=== PATIENT | female | born 1985 | race Caucasian/White ===

== ENCOUNTER 2017-04-22 20:41 | Emergency (ER) | payer OTHER, BC ==
[2017-04-22 20:46] VITALS: BP 136/94; PULSE 81; TEMP 97.7; BMI 28.3
[2017-04-22] MEDS ORDERED: KETOROLAC TROMETHAMINE 60 MG/2 ML VIAL IM ONE (21:19)
[2017-04-22] MEDS ORDERED: KETOROLAC TROMETHAMINE 60 MG/2 ML VIAL ONE (21:20)
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
== END 2017-04-22 22:02 | disposition home or self-care (01) ==
LOC: JERFT 20:41
PROC: 3E0233Z Introduction of Anti-inflammatory into Muscle, Percutaneous Approach (ICD-10-PCS; principal; 2017-04-22)
DX: M54.41 Lumbago with sciatica, right side (principal); M25.551 Pain in right hip; M25.512 Pain in left shoulder; V43.52XA Car driver injured in collision with other type car in traffic accident, initial encounter; Y92.488 Other paved roadways as the place of occurrence of the external cause; Y93.89 Activity, other specified; Y99.8 Other external cause status
CPT/HCPCS: 73030-TC-LT; 73523-TC; 84703; 99281-25

== ENCOUNTER 2018-12-14 18:47 | Inpatient (IN) | payer BC, OTHER ==
[2018-12-14] MEDS ORDERED: ACETAMINOPHEN 500 MG TABLET (FP) PO ONE (18:52)
--- NOTE | 2018-12-14 18:52 | PDOC ---
Rapid Medical Evaluation Time Seen by Provider: 12/14/18 18:49 Medical Evaluation: Allergies Allergy/AdvReac Type Severity Reaction Status Date / Time shellfish derived Allergy Verified 10/04/15 22:54 12/14/18 18:49 I have performed a brief exam on this patient. CC: right sided back pain- finished course of Cipro for UTI PE: VSS. AF. Right CVAT. Orders: urine, labs The patient will proceed to the ER for further evaluation. Discharge Disposition - Diagnosis Right flank pain - Referrals - Patient Instructions - Post Discharge Activity
[2018-12-14] MEDS ORDERED: SODIUM CHLORIDE 1,000 ML IV STA (20:33)
[2018-12-14] MEDS ORDERED: ONDANSETRON 4 MG/2 ML VIAL IVPB ONE (20:33)
--- NOTE | 2018-12-14 20:34 | PDOC ---
History of Present Illness - General Chief Complaint: Pain, Acute Stated Complaint: SENT BY DOCTOR, R/O KIDNEY INFECTION Time Seen by Provider: 12/14/18 18:49 History Source: Patient - History of Present Illness Initial Comments: 12/14/18 20:29 33 year old female seen by [facility] started on cipro for UTI / kidney infection 3 days ago. initially with nausea, vomiting, bodyaches. Patient reports that she is feeling worse with episodes of vomiting, right flank pain, . patient reports tmax 103 at home yesterday Past History - Past Medical History Allergies/Adverse Reactions: Allergies Allergy/AdvReac Type Severity Reaction Status Date / Time shellfish derived Allergy Verified 12/14/18 18:53 Home Medications: Ambulatory Orders Cyclobenzaprine HCl 7.5 mg PO HS #7 tablet 04/22/17 Diclofenac Sodium [Voltaren -] 75 mg PO BID #14 tablet. 04/22/17 Asthma: No Cancer: No Cardiac Disorders: Yes (PIH WITH FIRST ) COPD: No Diabetes: No Seizures: No Thyroid Disease: No Other medical history: UTI - Suicide/Smoking/Psychosocial Hx Smoking History: Never smoked Have you smoked in the past 12 months: No Information on smoking cessation initiated: No Hx Alcohol Use: No Drug/Substance Use Hx: No Substance Use Type: None Hx Substance Use Treatment: No Review of Systems - Review of Systems Able to Perform ROS?: Yes Is the patient limited Sami proficient: No Constitutional: Yes: Fever. No: Symptoms Reported, See HPI, Chills, Diaphoresis , Loss of Appetite, Malaise, Night Sweats, Weakness, Weight Stable, Unintentional Wgt. Loss, Unexplained wgt Loss, Other ABD/GI: Yes: Nausea, Vomiting, Abdominal cramping : Yes: Other (+ vaginal discharge) *Physical Exam - Vital Signs Last Vital Signs Temp Pulse Resp BP Pulse Ox 98.7 F 88 18 129/89 100 12/14/18 18:50 12/14/18 18:50 12/14/18 18:50 12/14/18 18:50 12/14/18 18:50 - Physical Exam General Appearance: Yes: Appropriately Dressed Respiratory/Chest: positive: Lungs Clear Gastrointestinal/Abdominal: positive: Normal Bowel Sounds, Tender (RLQ , right flank and right groin), Soft Musculoskeletal: positive: CVA Tenderness, CVA Tenderness (R) Extremity: positive: Normal Capillary Refill, Normal Inspection, Normal Range of Motion Neurologic: positive: Fully Oriented, Alert, Normal Mood/Affect ED Treatment Course - LABORATORY CBC & Chemistry Diagram: 12/14/18 21:04 12/14/18 21:04 Progress Note - Progress Note Progress Note: A: pyelonephritis P: cbc cmp blood culture IVF CTAP: no obstructed stone, no hydro, normal appendix patient to be admitted under hospitalist service. *DC/Admit/Observation/Transfer Diagnosis at time of Disposition: Right flank pain, Pyelonephritis - Discharge Dispostion Decision to Admit order: Yes - Referrals - Patient Instructions - Post Discharge Activity
[2018-12-14] MEDS ORDERED: ACETAMINOPHEN 325 MG TABLET (FP) ONE (20:45)
[2018-12-14] MEDS ORDERED: ONDANSETRON 4 MG/2 ML VIAL ONE (20:45)
[2018-12-14 21:21] LABS: BASO % 0.7 % (0-2.0); EOS % 1.6 % (0-4.5); HEMATOCRIT 37.5 % (32.4-45.2); HEMOGLOBIN 12.6 GM/dL (10.7-15.3); LYMPH % 11.8 % (8-40); MCHC 33.5 g/dl (32.0-36.0); MEAN CELL VOLUME 92.5 fl (80-96); MONO % 8.4 % (3.8-10.2); NEUT % 77.5 % (42.8-82.8); PLATELET COUNT 401 K/MM3 (134-434); RBC 4.05 M/mm3 (3.60-5.2); RDW 12.5 % (11.6-15.6); WHITE BLOOD COUNT 11.5 K/mm3 (4.0-10.0)
[2018-12-14 21:43] LABS: ALBUMIN 4.3 g/dl (3.4-5.0); BILIRUBIN,TOTAL 0.4 mg/dL (0.2-1); BLOOD UREA NITROGEN 13.2 mg/dL (7-18); CALCIUM 9.3 mg/dL (8.5-10.1); CREATININE 0.8 mg/dL (0.55-1.3); EPI CELLS 10.1 /HPF (0-5/HPF); HYALINE CASTS 8 /lpf (0-8); POTASSIUM 3.6 mmol/L (3.5-5.1); TOT PROT 8.1 g/dl (6.4-8.2); URINE APPEARANCE CLEAR; URINE BACTERIA 63.3 /hpf (NEGATIVE); URINE BILIRUBIN NEGATIVE (NEGATIVE); URINE COLOR YELLOW; URINE GLUCOSE (UA) NEGATIVE (NEGATIVE); URINE KETONE NEGATIVE (NEGATIVE); URINE LEUK ESTERASE NEGATIVE (NEGATIVE); URINE NITRITE NEGATIVE (NEGATIVE); URINE PROTEIN NEGATIVE (NEGATIVE); URINE RBC 4 /hpf (0-4); URINE WBC 5 /hpf (0-5)
--- NOTE | 2018-12-14 22:33 | PDOC ---
*Physical Exam - Vital Signs Last Vital Signs Temp Pulse Resp BP Pulse Ox 98.7 F 88 18 129/89 100 12/14/18 18:50 12/14/18 18:50 12/14/18 18:50 12/14/18 18:50 12/14/18 18:50 ED Treatment Course - LABORATORY CBC & Chemistry Diagram: 12/15/18 06:39 12/15/18 06:39 - ADDITIONAL ORDERS Additional order review: Laboratory Results 12/14/18 12/14/18 12/14/18 21:04 21:04 21:04 Sodium 137 Potassium 3.6 Chloride 103 Carbon Dioxide 27 Anion Gap 8 BUN 13.2 Creatinine 0.8 Est GFR (CKD-EPI)AfAm 113.06 Est GFR (CKD-EPI)NonAf 97.55 Random Glucose 84 Calcium 9.3 Total Bilirubin 0.4 AST 48 H ALT 60 Alkaline Phosphatase 183 H Total Protein 8.1 Albumin 4.3 Urine Color Yellow Urine Appearance Clear Urine pH 6.0 Ur Specific [place] 1.024 Urine Protein Negative Urine Glucose (UA) Negative Urine Ketones Negative Urine Blood Trace Urine Nitrite Negative Urine Bilirubin Negative Urine Urobilinogen 1.0 Ur Leukocyte Esterase Negative Urine WBC (Auto) 5 Urine RBC (Auto) 4 Urine Casts (Auto) 8 U Epithel Cells (Auto) 10.1 Urine Bacteria (Auto) 63.3 Urine HCG, Qual Negative 12/14/18 21:04 RBC 4.05 MCV 92.5 MCHC 33.5 RDW 12.5 MPV 8.0 Neutrophils % 77.5 Lymphocytes % 11.8 D Monocytes % 8.4 Eosinophils % 1.6 D Basophils % 0.7 D - Medications Given in the ED: ED Medications Discontinued Medications Generic Name Dose Route Start Last Admin Trade Name Bimalq PRN Reason Stop Dose Admin Acetaminophen 975 mg 12/14/18 18:52 12/14/18 20:35 Tylenol - PO 12/14/18 18:53 975 mg ONCE ONE Administration Sodium Chloride 1,000 mls @ 1,000 mls/hr 12/14/18 20:33 12/14/18 21:05 Normal Saline - IV 12/14/18 21:32 1,000 mls/hr ASDIR STA Administration Ondansetron HCl 4 mg 12/14/18 20:33 12/14/18 21:05 Zofran Injection IVPB 12/14/18 20:34 4 mg ONCE ONE Administration Medical Decision Making - Medical Decision Making 12/14/18 22:31 Pt seen by Midlevel Provider under my direct supervision 33 year old female seen by [facility] started on cipro for UTI / kidney infection 3 days ago. Patient reports that she is feeling worse with episodes of vomiting, right flank pain Tmax 103 at home. Pt interviewed and examined Ancillary studies reviewed I agree with plan as outlined by Midlevel Provider 12/14/18 22:33 Laboratory Tests 12/14/18 12/14/18 12/14/18 21:04 21:04 21:04 WBC 11.5 H Hgb 12.6 Hct 37.5 D Plt Count 401 D BUN 13.2 Creatinine 0.8 Urine Blood Trace Urine Nitrite Negative Ur Leukocyte Esterase Negative Urine WBC (Auto) 5 Urine RBC (Auto) 4 Clinical impression: possible pyelonephritis, initial presentation *DC/Admit/Observation/Transfer Diagnosis at time of Disposition: Right flank pain, Pyelonephritis - Referrals - Patient Instructions - Post Discharge Activity
--- NOTE | 2018-12-14 22:57 | PN ---
Teaching Attending Note ATTENDING PHYSICIAN STATEMENT I saw and evaluated the patient. I reviewed the resident's note and discussed the case with the resident. I agree with the resident's findings and plan as documented. Seen and examined; please refer to resident note for further historical information. Briefly, this is a 33 y/o female medicine requested to admit for failed PO UTI tx. She is afebrile with normal hemodynamics, a while count of only 10, and a UA with negative LE and nitrite. CT negative. Medicine requested to admit VS, labs, imaging reviewed NAD, AAO, resting in bed NC AT EOMI PERRLA RRR s1/2 no mgr Lungs CTAB, w/ sym exp NT ND +BS CN2-12 wnl, no fnd No prior micro results ASSESSMENT AND PLAN: Patient recently treated with cipro for OP UTI presenting with flank pain and dysuria with negative UA and negative CT abd/pelvis 1) Flank pain -Negative imaging; repeat exams. Investigate elevated GGT and see if any potential relation. -R/O urinary contribution 2) Acute cystitis on cipro -Get OP UA/cx's; on ceftriaxone. Monitor. Followup cx's here. As UA negative but symptomatic female can repeat. If sn acceptable and pain is controlled can go ahead and likely DC soon Full Code
[2018-12-14] MEDS ORDERED: CEFTRIAXONE 1,000 MG in DEXTROSE 5%-WATER - 50 ML IVPB ONE (22:58)
[2018-12-14] MEDS ORDERED: CEFTRIAXONE 1 GM/50 ML BAG ONE (23:16)
[2018-12-14] MEDS: SODIUM CHLORIDE 1,000 ML IV SCH (23:32)
[2018-12-15 01:49] VITALS: BMI 28.7
[2018-12-15] MEDS: SODIUM CHLORIDE 1,000 ML IV SCH ×2 (02:00→09:36)
--- NOTE | 2018-12-15 02:13 | HP ---
CHIEF COMPLAINT: R flank pain and right sided back pain PCP: n/a HISTORY OF PRESENT ILLNESS: 33 y.o. F PMH recurring UTIs and miraines presented with c/o right sided flank and back pain. Pt was seen by [facility] urgent care on 12/11/18 for UTI symptoms; was started on Cipro. Currently pt is experiencing progressively worsening R sided flank pain since 12/11/18 associated with nausea and vomiting (4 episodes NBNB today). Tmax at home was 103 as per patient. R flank pain is 8/. Pt states she took 2 Advils yesterday with minimal improvement of symptoms. Nothing seems to alleviate the pain but it is worsened with change in positions especially when lying on her sided. Pt also endorses temporal headache present for 1 day, blurry vision that she has had since the onset of the headache, dizziness as well as mild dysuria. She says that she has had a weight loss of 8 lbs over the past few months. Good appetite, last meal was this morning, pt had a bowl of oatmeal. Has been drinking a lot of PO water as she is trying to prevent repeat UTI symptoms. ER course was notable for: (1) CT abd pel negative (2) Started ceftriaxone 1g (3) Recent Travel: Denies PAST MEDICAL HISTORY:Migraines, recurring UTIs PAST SURGICAL HISTORY: Left wrist surgery in 2006. Right orbital socket repair 2010. Classical C-sxn 2015. Social History: Has 2 children, 12 & 3 y.o. Smoking: Denies Alcohol: Socially. 1-2 mixed drinks on weekends Drugs: Denies Family History: Maternal grandmother- DM Allergies shellfish derived Allergy (Verified 12/14/18 18:53) Sexual Hx: Currently sexually active, 1 partner -B-HCG neg HOME MEDICATIONS: Home Medications Medication Instructions Recorded Ciprofloxacin [Cipro (Restricted 500 mg PO BID 12/15/18 To Id)] REVIEW OF SYSTEMS CONSTITUTIONAL: Absent: fever, chills, diaphoresis, generalized weakness, malaise, loss of appetite, weight change HEENT: Absent: rhinorrhea, nasal congestion, throat pain, throat swelling, difficulty swallowing, mouth swelling, ear pain, eye pain, visual changes CARDIOVASCULAR: Absent: chest pain, syncope, palpitations, irregular heart rate, lightheadedness , peripheral edema RESPIRATORY: Absent: cough, shortness of breath, dyspnea with exertion, orthopnea, wheezing, stridor, hemoptysis GASTROINTESTINAL: Absent: abdominal pain, abdominal distension, nausea, vomiting, diarrhea, constipation, melena, hematochezia GENITOURINARY: Absent: dysuria, frequency, urgency, hesitancy, hematuria, flank pain, genital pain MUSCULOSKELETAL: Absent: myalgia, arthralgia, joint swelling, back pain, neck pain SKIN: Absent: rash, itching, pallor HEMATOLOGIC/IMMUNOLOGIC: Absent: easy bleeding, easy bruising, lymphadenopathy, frequent infections ENDOCRINE: Absent: unexplained weight gain, unexplained weight loss, heat intolerance, cold intolerance NEUROLOGIC: Absent: headache, focal weakness or paresthesias, dizziness, unsteady gait, seizure, mental status changes, bladder or bowel incontinence PSYCHIATRIC: Absent: anxiety, depression, suicidal or homicidal ideation, hallucinations. PHYSICAL EXAMINATION Vital Signs - 24 hr 12/14/18 12/14/18 12/15/18 18:50 20:25 00:54 Temperature 98.7 F 99.4 F 98.1 F Pulse Rate 88 Pulse Rate [ 94 H 73 Right Apical] Respiratory 18 19 18 Rate Blood Pressure 129/89 Blood Pressure 120/67 115/77 [Left Arm] O2 Sat by Pulse 100 100 99 Oximetry (%) GENERAL: Awake, alert, and fully oriented, in no acute distress. HEAD: Normal with no signs of trauma. EYES: Pupils equal, round and reactive to light, extraocular movements intact, sclera anicteric, conjunctiva clear. EARS, NOSE, THROAT: Ears normal, nares patent, oropharynx clear without exudates. Moist mucous membranes. NECK: Normal range of motion, supple without lymphadenopathy. LUNGS: Breath sounds equal, clear to auscultation bilaterally. No wheezes, and no crackles. No accessory muscle use. HEART: Regular rate and rhythm, normal S1 and S2 without murmur, rub or gallop. ABDOMEN: R flank tenderness, does not radiate. Negative Mcburneys. No rebound tenderness. Soft, not distended, normoactive bowel sounds, no guarding, no masses. MUSCULOSKELETAL: + CVA tenderness. Normal range of motion at all joints. UPPER EXTREMITIES: 2+ pulses, warm, well-perfused. No cyanosis. No clubbing. No peripheral edema. LOWER EXTREMITIES: 2+ pulses, warm, well-perfused. No calf tenderness. No peripheral edema. NEUROLOGICAL: Cranial nerves II-XII intact. Normal speech. Normal gait. SKIN: Warm, dry, normal turgor, no rashes or lesions noted, normal capillary refill. Laboratory Results - last 24 hr Laboratory Last Values WBC 11.5 K/mm3 (4.0-10.0) H 12/14/18 21:04 RBC 4.05 M/mm3 (3.60-5.2) 12/14/18 21:04 Hgb 12.6 GM/dL (10.7-15.3) 12/14/18 21:04 Hct 37.5 % (32.4-45.2) D 12/14/18 21:04 MCV 92.5 fl (80-96) 12/14/18 21:04 MCH 31.0 pg (25.7-33.7) 12/14/18 21:04 MCHC 33.5 g/dl (32.0-36.0) 12/14/18 21:04 RDW 12.5 % (11.6-15.6) 12/14/18 21:04 Plt Count 401 K/MM3 (134-434) D 12/14/18 21:04 MPV 8.0 fl (7.5-11.1) 12/14/18 21:04 Absolute Neuts (auto) 8.9 K/mm3 (1.5-8.0) H 12/14/18 21:04 Neutrophils % 77.5 % (42.8-82.8) 12/14/18 21:04 Lymphocytes % 11.8 % (8-40) D 12/14/18 21:04 Monocytes % 8.4 % (3.8-10.2) 12/14/18 21:04 Eosinophils % 1.6 % (0-4.5) D 12/14/18 21:04 Basophils % 0.7 % (0-2.0) D 12/14/18 21:04 Nucleated RBC % 0 % (0-0) 12/14/18 21:04 Sodium 137 mmol/L (136-145) 12/14/18 21:04 Potassium 3.6 mmol/L (3.5-5.1) 12/14/18 21:04 Chloride 103 mmol/L (98-107) 12/14/18 21:04 Carbon Dioxide 27 mmol/L (21-32) 12/14/18 21:04 Anion Gap 8 MMOL/L (8-16) 12/14/18 21:04 BUN 13.2 mg/dL (7-18) 12/14/18 21:04 Creatinine 0.8 mg/dL (0.55-1.3) 12/14/18 21:04 Est GFR (CKD-EPI)AfAm 113.06 12/14/18 21:04 Est GFR (CKD-EPI)NonAf 97.55 12/14/18 21:04 Random Glucose 84 mg/dL (74-106) 12/14/18 21:04 Calcium 9.3 mg/dL (8.5-10.1) 12/14/18 21:04 Total Bilirubin 0.4 mg/dL (0.2-1) 12/14/18 21:04 AST 48 U/L (15-37) H 12/14/18 21:04 ALT 60 U/L (13-61) 12/14/18 21:04 Alkaline Phosphatase 183 U/L (45-117) H 12/14/18 21:04 Total Protein 8.1 g/dl (6.4-8.2) 12/14/18 21:04 Albumin 4.3 g/dl (3.4-5.0) 12/14/18 21:04 Urine Color Yellow 12/14/18 21:04 Urine Appearance Clear 12/14/18 21:04 Urine pH 6.0 (5.0-8.0) 12/14/18 21:04 Ur Specific [place] 1.024 (1.010-1.035) 12/14/18 21:04 Urine Protein Negative (NEGATIVE) 12/14/18 21:04 Urine Glucose (UA) Negative (NEGATIVE) 12/14/18 21:04 Urine Ketones Negative (NEGATIVE) 12/14/18 21:04 Urine Blood Trace (NEGATIVE) 12/14/18 21:04 Urine Nitrite Negative (NEGATIVE) 12/14/18 21:04 Urine Bilirubin Negative (NEGATIVE) 12/14/18 21:04 Urine Urobilinogen 1.0 mg/dL (0.2-1.0) 12/14/18 21:04 Ur Leukocyte Esterase Negative (NEGATIVE) 12/14/18 21:04 Urine WBC (Auto) 5 /hpf (0-5) 12/14/18 21:04 Urine RBC (Auto) 4 /hpf (0-4) 12/14/18 21:04 Urine Casts (Auto) 8 /lpf (0-8) 12/14/18 21:04 U Epithel Cells (Auto) 10.1 /HPF (0-5/HPF) 12/14/18 21:04 Urine Bacteria (Auto) 63.3 /hpf (NEGATIVE) 12/14/18 21:04 Urine HCG, Qual Negative 12/14/18 21:04 ASSESSMENT/PLAN: #Acute R flank pain -Mild leukocytosis present -Ceftriaxone 1g; s/p failed course cipro -F/u CBC, CMP, Mg, Phos, Valentin/chlam -F/u blood, urine cx -UA neg -CT abd pel negative -Afebrile -F/u culture results from [facility] #FEN -NS @ 150mL/ hr -F/u cmp -Regular diet #DVT PPX LVX 40 SQ Visit type - Emergency Visit Emergency Visit: Yes ED Registration Date: 12/14/18 Care time: The patient presented to the Emergency Department on the above date and was hospitalized for further evaluation of their emergent condition. - New Patient This patient is new to me today: Yes Date on this admission: 12/15/18 - Critical Care Critical Care patient: No ATTENDING PHYSICIAN STATEMENT I saw and evaluated the patient. I reviewed the resident's note and discussed the case with the resident. I agree with the resident's findings and plan as documented. SUBJECTIVE: OBJECTIVE: ASSESSMENT AND PLAN:
[2018-12-15 07:39] LABS: BASO % 0.6 % (0-2.0); EOS % 1.8 % (0-4.5); HEMATOCRIT 32.5 % (32.4-45.2); HEMOGLOBIN 11.2 GM/dL (10.7-15.3); LYMPH % 12.9 % (8-40); MCHC 34.5 g/dl (32.0-36.0); MEAN CELL VOLUME 92.8 fl (80-96); MEAN PLT VOLUME 7.9 fl (7.5-11.1); MONO % 10.3 % (3.8-10.2); NEUT % 74.4 % (42.8-82.8); PLATELET COUNT 340 K/MM3 (134-434); RDW 12.4 % (11.6-15.6); WHITE BLOOD COUNT 9.5 K/mm3 (4.0-10.0)
[2018-12-15 07:50] LABS: ALBUMIN 3.3 g/dl (3.4-5.0); BILIRUBIN,TOTAL 0.6 mg/dL (0.2-1); BLOOD UREA NITROGEN 6.9 mg/dL (7-18); CALCIUM 8.1 mg/dL (8.5-10.1); CREATININE 0.6 mg/dL (0.55-1.3); MAGNESIUM 2.1 mg/dL (1.8-2.4); PHOSPHOROUS 2.9 mg/dL (2.5-4.9); POTASSIUM 3.8 mmol/L (3.5-5.1); TOT PROT 6.6 g/dl (6.4-8.2)
[2018-12-15] MEDS: ACETAMINOPHEN 325 MG TABLET (FP) PO PRN (07:50)
[2018-12-15] MEDS ORDERED: ONDANSETRON 4 MG/2 ML VIAL IVPUSH ONE ×3 (08:03→23:48)
[2018-12-15] MEDS ORDERED: DEXTROSE 5%-WATER - 50 ML IVPB ONE (08:26)
[2018-12-15] MEDS ORDERED: cefTRIAXone SODIUM 1 GM VIAL ONE (08:26)
[2018-12-15 09:28] LABS: EPI CELLS 8.3 /HPF (0-5/HPF); HYALINE CASTS 1 /lpf (0-8); URINE APPEARANCE CLEAR; URINE BACTERIA 112.8 /hpf (NEGATIVE); URINE BILIRUBIN NEGATIVE (NEGATIVE); URINE COLOR YELLOW; URINE GLUCOSE (UA) NEGATIVE (NEGATIVE); URINE KETONE NEGATIVE (NEGATIVE); URINE LEUK ESTERASE NEGATIVE (NEGATIVE); URINE NITRITE NEGATIVE (NEGATIVE); URINE PROTEIN NEGATIVE (NEGATIVE); URINE RBC 1 /hpf (0-4); URINE WBC 3 /hpf (0-5)
[2018-12-15] MEDS ORDERED: CEFTRIAXONE 1 GM in DEXTROSE 5%-WATER - 50 ML IVPB SCH (10:00)
[2018-12-15] MEDS ORDERED: ENOXAPARIN NA (PORCINE) 40 MG/0.4 ML DISP.SYRIN SQ SCH (10:00)
[2018-12-15] MEDS ORDERED: METOCLOPRAMIDE HCL 10 MG TABLET (FP) PO ONE (11:36)
[2018-12-15] MEDS ORDERED: KETOROLAC TROMETHAMINE 30 MG/1 ML VIAL IVPUSH ONE (12:00)
--- NOTE | 2018-12-15 12:44 | PN ---
Addendum entered and electronically signed by Jeff Luque, RESIDENT 12/15/18 15:48: leukocytosis no longer present 11.5 -> 9.5 Original Note: <Jeff Luque - Last Filed: 12/15/18 14:25> Physical Exam: SUBJECTIVE: Patient seen and examined at bedside this AM. No acute events. OBJECTIVE: Vital Signs Period Temp Pulse Resp BP Sys/Cuevas Pulse Ox Last 24 Hr 98.1 F-99.4 F 69-94 16-19 107-129/59-89 97-100 GENERAL: The patient is awake, alert, and fully oriented, in no acute distress. HEAD: Normal with no signs of trauma. EYES: PERRL, extraocular movements intact, sclera anicteric, conjunctiva clear. No ptosis. ENT: Ears normal, nares patent, oropharynx clear without exudates, moist mucous membranes. NECK: supple. LUNGS: Breath sounds equal, clear to auscultation bilaterally, no wheezes, no crackles, no accessory muscle use. HEART: Regular rate and rhythm, S1, S2 without murmur, rub or gallop. ABDOMEN: Soft, nontender, nondistended, normoactive bowel sounds, no guarding, no rebound. EXTREMITIES: 2+ pulses, warm, well-perfused, no edema. NEUROLOGICAL: Cranial nerves II through XII grossly intact. Normal speech, gait not observed. PSYCH: Normal mood, normal affect. SKIN: Warm, dry, no rashes or lesions noted Laboratory Results - last 24 hr 12/14/18 12/14/18 12/14/18 21:04 21:04 21:04 WBC 11.5 H RBC 4.05 Hgb 12.6 Hct 37.5 D MCV 92.5 MCH 31.0 MCHC 33.5 RDW 12.5 Plt Count 401 D MPV 8.0 Absolute Neuts (auto) 8.9 H Neutrophils % 77.5 Lymphocytes % 11.8 D Monocytes % 8.4 Eosinophils % 1.6 D Basophils % 0.7 D Nucleated RBC % 0 Sodium 137 Potassium 3.6 Chloride 103 Carbon Dioxide 27 Anion Gap 8 BUN 13.2 Creatinine 0.8 Est GFR (CKD-EPI)AfAm 113.06 Est GFR (CKD-EPI)NonAf 97.55 Random Glucose 84 Calcium 9.3 Phosphorus Magnesium Total Bilirubin 0.4 GGT AST 48 H ALT 60 Alkaline Phosphatase 183 H Total Protein 8.1 Albumin 4.3 Urine Color Urine Appearance Urine pH Ur Specific [place] Urine Protein Urine Glucose (UA) Urine Ketones Urine Blood Urine Nitrite Urine Bilirubin Urine Urobilinogen Ur Leukocyte Esterase Urine WBC (Auto) Urine RBC (Auto) Urine Casts (Auto) U Epithel Cells (Auto) Urine Bacteria (Auto) Urine HCG, Qual Negative 12/14/18 12/15/18 12/15/18 21:04 06:39 06:39 WBC 9.5 RBC 3.50 L Hgb 11.2 Hct 32.5 MCV 92.8 MCH 32.0 MCHC 34.5 RDW 12.4 Plt Count 340 MPV 7.9 Absolute Neuts (auto) 7.0 Neutrophils % 74.4 Lymphocytes % 12.9 Monocytes % 10.3 H Eosinophils % 1.8 Basophils % 0.6 Nucleated RBC % 0 Sodium 142 Potassium 3.8 Chloride 109 H Carbon Dioxide 24 Anion Gap 8 BUN 6.9 L Creatinine 0.6 Est GFR (CKD-EPI)AfAm 139.78 Est GFR (CKD-EPI)NonAf 120.61 Random Glucose 84 Calcium 8.1 L Phosphorus 2.9 Magnesium 2.1 Total Bilirubin 0.6 GGT 182 H AST 33 ALT 48 Alkaline Phosphatase 149 H Total Protein 6.6 Albumin 3.3 L Urine Color Yellow Urine Appearance Clear Urine pH 6.0 Ur Specific [place] 1.024 Urine Protein Negative Urine Glucose (UA) Negative Urine Ketones Negative Urine Blood Trace Urine Nitrite Negative Urine Bilirubin Negative Urine Urobilinogen 1.0 Ur Leukocyte Esterase Negative Urine WBC (Auto) 5 Urine RBC (Auto) 4 Urine Casts (Auto) 8 U Epithel Cells (Auto) 10.1 Urine Bacteria (Auto) 63.3 Urine HCG, Qual 12/15/18 08:50 WBC RBC Hgb Hct MCV MCH MCHC RDW Plt Count MPV Absolute Neuts (auto) Neutrophils % Lymphocytes % Monocytes % Eosinophils % Basophils % Nucleated RBC % Sodium Potassium Chloride Carbon Dioxide Anion Gap BUN Creatinine Est GFR (CKD-EPI)AfAm Est GFR (CKD-EPI)NonAf Random Glucose Calcium Phosphorus Magnesium Total Bilirubin GGT AST ALT Alkaline Phosphatase Total Protein Albumin Urine Color Yellow Urine Appearance Clear Urine pH 6.0 Ur Specific [place] 1.013 Urine Protein Negative Urine Glucose (UA) Negative Urine Ketones Negative Urine Blood Trace Urine Nitrite Negative Urine Bilirubin Negative Urine Urobilinogen 1.0 Ur Leukocyte Esterase Negative Urine WBC (Auto) 3 Urine RBC (Auto) 1 Urine Casts (Auto) 1 U Epithel Cells (Auto) 8.3 Urine Bacteria (Auto) 112.8 Urine HCG, Qual Active Medications Generic Name Dose Route Start Last Admin Trade Name Freq PRN Reason Stop Dose Admin Acetaminophen 650 mg 12/14/18 23:29 12/15/18 07:50 Tylenol - PO 650 mg Q6H PRN Administration FEVER Sodium Chloride 1,000 mls @ 150 mls/hr 12/14/18 23:00 12/15/18 09:36 Normal Saline - IV 150 mls/hr ASDIR ANISHA Administration Ceftriaxone Sodium 1 gm/ 50 mls @ 100 mls/hr 12/15/18 10:00 12/15/18 09:36 Dextrose IVPB 100 mls/hr DAILY ANISHA Administration ASSESSMENT/PLAN: Labs/Images: - UA negative for leuk est, nitrites, low wbc count, normal specific gravity. -CT abd/pel negative for calculi, pyelonephritis, no evidence of calcification in ureters, bladder. no hydronephrosis. This is a 33 y.o. F PMH recurrent UTI's and migraines who presented with fevers and chills associated right flank/back pain s/p urgent care eval for UTI sent home on cipro. #Acute R flank pain 2/2 UTI - Pt has hx of recurrent UTI's 2/2 possible anatomic abnormality in ureter vs bladder contractility issues vs poor hygiene - Mild leukocytosis present, afebrile - Ceftriaxone 1g - F/u CBC, CMP, Valentin/chlamydiae - F/u blood, urine cx - tried to follow up culture results from [facility] - pelvic/bladder US ordered to assess if there is any anatomic abnormalities in the ureter or bladder that could be causing these freqent UTI's. - needs uro f/u as o/p for possible urodynamics vs Voiding cystourethrogram to r /o causes for ascending UTI (Vesicoureteral reflux). #Transaminitis - possibly 2/2 recent cipro use vs tylenol but no liver pathology noted on CT abd and pelvis. - elevated GGT - AST 48-> 30 - ALP downtrending from 183--> 149 - will continue to monitor Dispo: tried to get ahold of the UA Cx and sensitivity from [facility] to better target the bacteria with appropriate abx. #FEN -NS @ 150mL/ hr -F/u cmp -Regular diet #DVT PPX- Lovenox 40mg SQ ANISHA Visit type - Emergency Visit Emergency Visit: Yes ED Registration Date: 12/14/18 Care time: The patient presented to the Emergency Department on the above date and was hospitalized for further evaluation of their emergent condition. - New Patient This patient is new to me today: Yes Date on this admission: 12/15/18 - Critical Care Critical Care patient: No - Discharge Referral Referred to [facility] No ATTENDING PHYSICIAN STATEMENT I saw and evaluated the patient. I reviewed the resident's note and discussed the case with the resident. I agree with the resident's findings and plan as documented. SUBJECTIVE: OBJECTIVE: ASSESSMENT AND PLAN: <Blake Schreiber - Last Filed: 12/15/18 16:37> Physical Exam: SUBJECTIVE: Patient seen and examined OBJECTIVE: Vital Signs Period Temp Pulse Resp BP Sys/Cuevas Pulse Ox Last 24 Hr 98.1 F-99.4 F 64-94 16-20 107-129/59-89 97-100 GENERAL: The patient is awake, alert, and fully oriented, in no acute distress. HEAD: Normal with no signs of trauma. EYES: PERRL, extraocular movements intact, sclera anicteric, conjunctiva clear. No ptosis. ENT: Ears normal, nares patent, oropharynx clear without exudates, moist mucous membranes. NECK: Trachea midline, full range of motion, supple. LUNGS: Breath sounds equal, clear to auscultation bilaterally, no wheezes, no crackles, no accessory muscle use. HEART: Regular rate and rhythm, S1, S2 without murmur, rub or gallop. ABDOMEN: Soft, nontender, nondistended, normoactive bowel sounds, no guarding, no rebound, no hepatosplenomegaly, no masses. EXTREMITIES: 2+ pulses, warm, well-perfused, no edema. NEUROLOGICAL: Cranial nerves II through XII grossly intact. Normal speech, gait not observed. PSYCH: Normal mood, normal affect. SKIN: Warm, dry, normal turgor, no rashes or lesions noted Laboratory Results - last 24 hr 12/14/18 12/14/18 12/14/18 21:04 21:04 21:04 WBC 11.5 H RBC 4.05 Hgb 12.6 Hct 37.5 D MCV 92.5 MCH 31.0 MCHC 33.5 RDW 12.5 Plt Count 401 D MPV 8.0 Absolute Neuts (auto) 8.9 H Neutrophils % 77.5 Lymphocytes % 11.8 D Monocytes % 8.4 Eosinophils % 1.6 D Basophils % 0.7 D Nucleated RBC % 0 Sodium 137 Potassium 3.6 Chloride 103 Carbon Dioxide 27 Anion Gap 8 BUN 13.2 Creatinine 0.8 Est GFR (CKD-EPI)AfAm 113.06 Est GFR (CKD-EPI)NonAf 97.55 Random Glucose 84 Calcium 9.3 Phosphorus Magnesium Total Bilirubin 0.4 GGT AST 48 H ALT 60 Alkaline Phosphatase 183 H Total Protein 8.1 Albumin 4.3 Urine Color Urine Appearance Urine pH Ur Specific [place] Urine Protein Urine Glucose (UA) Urine Ketones Urine Blood Urine Nitrite Urine Bilirubin Urine Urobilinogen Ur Leukocyte Esterase Urine WBC (Auto) Urine RBC (Auto) Urine Casts (Auto) U Epithel Cells (Auto) Urine Bacteria (Auto) Urine HCG, Qual Negative 12/14/18 12/15/18 12/15/18 21:04 06:39 06:39 WBC 9.5 RBC 3.50 L Hgb 11.2 Hct 32.5 MCV 92.8 MCH 32.0 MCHC 34.5 RDW 12.4 Plt Count 340 MPV 7.9 Absolute Neuts (auto) 7.0 Neutrophils % 74.4 Lymphocytes % 12.9 Monocytes % 10.3 H Eosinophils % 1.8 Basophils % 0.6 Nucleated RBC % 0 Sodium 142 Potassium 3.8 Chloride 109 H Carbon Dioxide 24 Anion Gap 8 BUN 6.9 L Creatinine 0.6 Est GFR (CKD-EPI)AfAm 139.78 Est GFR (CKD-EPI)NonAf 120.61 Random Glucose 84 Calcium 8.1 L Phosphorus 2.9 Magnesium 2.1 Total Bilirubin 0.6 GGT 182 H AST 33 ALT 48 Alkaline Phosphatase 149 H Total Protein 6.6 Albumin 3.3 L Urine Color Yellow Urine Appearance Clear Urine pH 6.0 Ur Specific [place] 1.024 Urine Protein Negative Urine Glucose (UA) Negative Urine Ketones Negative Urine Blood Trace Urine Nitrite Negative Urine Bilirubin Negative Urine Urobilinogen 1.0 Ur Leukocyte Esterase Negative Urine WBC (Auto) 5 Urine RBC (Auto) 4 Urine Casts (Auto) 8 U Epithel Cells (Auto) 10.1 Urine Bacteria (Auto) 63.3 Urine HCG, Qual 12/15/18 08:50 WBC RBC Hgb Hct MCV MCH MCHC RDW Plt Count MPV Absolute Neuts (auto) Neutrophils % Lymphocytes % Monocytes % Eosinophils % Basophils % Nucleated RBC % Sodium Potassium Chloride Carbon Dioxide Anion Gap BUN Creatinine Est GFR (CKD-EPI)AfAm Est GFR (CKD-EPI)NonAf Random Glucose Calcium Phosphorus Magnesium Total Bilirubin GGT AST ALT Alkaline Phosphatase Total Protein Albumin Urine Color Yellow Urine Appearance Clear Urine pH 6.0 Ur Specific [place] 1.013 Urine Protein Negative Urine Glucose (UA) Negative Urine Ketones Negative Urine Blood Trace Urine Nitrite Negative Urine Bilirubin Negative Urine Urobilinogen 1.0 Ur Leukocyte Esterase Negative Urine WBC (Auto) 3 Urine RBC (Auto) 1 Urine Casts (Auto) 1 U Epithel Cells (Auto) 8.3 Urine Bacteria (Auto) 112.8 Urine HCG, Qual Active Medications Generic Name Dose Route Start Last Admin Trade Name Freq PRN Reason Stop Dose Admin Acetaminophen 650 mg 12/14/18 23:29 12/15/18 07:50 Tylenol - PO 650 mg Q6H PRN Administration FEVER Ceftriaxone Sodium 1 gm/ 50 mls @ 100 mls/hr 12/15/18 10:00 12/15/18 09:36 Dextrose IVPB 100 mls/hr DAILY ANISHA Administration ASSESSMENT/PLAN: ATTENDING PHYSICIAN STATEMENT See teaching attending note.
--- NOTE | 2018-12-15 14:00 | PN ---
Teaching Attending Note Name of Resident: Jeff Luque ATTENDING PHYSICIAN STATEMENT I saw and evaluated the patient. I reviewed the resident's note and discussed the case with the resident. I agree with the resident's findings and plan as documented. SUBJECTIVE: Pt admitted yesterday w/ R sided flank pain, ongoing fever spikes & chills for the past week. Started at Urgent care on cipro for reported UTI but presented 3 days later to [facility] ED w/ lingering symptoms and pain. Per available urine studies & CT abd/pelvis pt with no evidence of pyelo though pending confirmation of prior urine tests at Urgent Care. Pt reports pain is better today than yesterday but not fully resolved, was having significant vomiting yesterday so far today none. OBJECTIVE: Intake & Output 12/13/18 12/14/18 12/15/18 12/16/18 11:59 11:59 11:59 11:59 Intake Total 500 Balance 500 Weight 151 lb 15.998 oz GEN: well appearing young woman in no acute distress, AAOx3 HEENT: EOMI, MMM, no scleral icterus or pallor NECK: no JVD, no cervical LAD, no thyroidomegaly CVS: NRRR, S1 &s2 nrml intensity, no murmurs, rubs, gallops RESP: CTA b/l with no wheezing, rales, rhonchi ABD: soft, NT, ND, normoactive BS Back: no paraspinal or spinal tenderness, slight L sided lumbosacral tenderness , worst ~ iliosacral joint EXT: warm, well perfused, 2+ radial & DP pulses, no LE edema Skin: no rashes or icterus Laboratory Results - last 24 hr 12/14/18 12/14/18 12/14/18 21:04 21:04 21:04 WBC 11.5 H RBC 4.05 Hgb 12.6 Hct 37.5 D MCV 92.5 MCH 31.0 MCHC 33.5 RDW 12.5 Plt Count 401 D MPV 8.0 Absolute Neuts (auto) 8.9 H Neutrophils % 77.5 Lymphocytes % 11.8 D Monocytes % 8.4 Eosinophils % 1.6 D Basophils % 0.7 D Nucleated RBC % 0 Sodium 137 Potassium 3.6 Chloride 103 Carbon Dioxide 27 Anion Gap 8 BUN 13.2 Creatinine 0.8 Est GFR (CKD-EPI)AfAm 113.06 Est GFR (CKD-EPI)NonAf 97.55 Random Glucose 84 Calcium 9.3 Phosphorus Magnesium Total Bilirubin 0.4 GGT AST 48 H ALT 60 Alkaline Phosphatase 183 H Total Protein 8.1 Albumin 4.3 Urine Color Urine Appearance Urine pH Ur Specific [place] Urine Protein Urine Glucose (UA) Urine Ketones Urine Blood Urine Nitrite Urine Bilirubin Urine Urobilinogen Ur Leukocyte Esterase Urine WBC (Auto) Urine RBC (Auto) Urine Casts (Auto) U Epithel Cells (Auto) Urine Bacteria (Auto) Urine HCG, Qual Negative 12/14/18 12/15/18 12/15/18 21:04 06:39 06:39 WBC 9.5 RBC 3.50 L Hgb 11.2 Hct 32.5 MCV 92.8 MCH 32.0 MCHC 34.5 RDW 12.4 Plt Count 340 MPV 7.9 Absolute Neuts (auto) 7.0 Neutrophils % 74.4 Lymphocytes % 12.9 Monocytes % 10.3 H Eosinophils % 1.8 Basophils % 0.6 Nucleated RBC % 0 Sodium 142 Potassium 3.8 Chloride 109 H Carbon Dioxide 24 Anion Gap 8 BUN 6.9 L Creatinine 0.6 Est GFR (CKD-EPI)AfAm 139.78 Est GFR (CKD-EPI)NonAf 120.61 Random Glucose 84 Calcium 8.1 L Phosphorus 2.9 Magnesium 2.1 Total Bilirubin 0.6 GGT 182 H AST 33 ALT 48 Alkaline Phosphatase 149 H Total Protein 6.6 Albumin 3.3 L Urine Color Yellow Urine Appearance Clear Urine pH 6.0 Ur Specific [place] 1.024 Urine Protein Negative Urine Glucose (UA) Negative Urine Ketones Negative Urine Blood Trace Urine Nitrite Negative Urine Bilirubin Negative Urine Urobilinogen 1.0 Ur Leukocyte Esterase Negative Urine WBC (Auto) 5 Urine RBC (Auto) 4 Urine Casts (Auto) 8 U Epithel Cells (Auto) 10.1 Urine Bacteria (Auto) 63.3 Urine HCG, Qual 12/15/18 08:50 WBC RBC Hgb Hct MCV MCH MCHC RDW Plt Count MPV Absolute Neuts (auto) Neutrophils % Lymphocytes % Monocytes % Eosinophils % Basophils % Nucleated RBC % Sodium Potassium Chloride Carbon Dioxide Anion Gap BUN Creatinine Est GFR (CKD-EPI)AfAm Est GFR (CKD-EPI)NonAf Random Glucose Calcium Phosphorus Magnesium Total Bilirubin GGT AST ALT Alkaline Phosphatase Total Protein Albumin Urine Color Yellow Urine Appearance Clear Urine pH 6.0 Ur Specific [place] 1.013 Urine Protein Negative Urine Glucose (UA) Negative Urine Ketones Negative Urine Blood Trace Urine Nitrite Negative Urine Bilirubin Negative Urine Urobilinogen 1.0 Ur Leukocyte Esterase Negative Urine WBC (Auto) 3 Urine RBC (Auto) 1 Urine Casts (Auto) 1 U Epithel Cells (Auto) 8.3 Urine Bacteria (Auto) 112.8 Urine HCG, Qual ASSESSMENT AND PLAN: All Active Problems Right flank pain, clinically suspected pyelonephritis - pt with Left sided flank pain ~ SI joint ? resolving UTI, pyelo vs reactive arthritis - w/ AM labs check ESR/CRP, HLA-B27 Ab - c/w PRN zofran for nausea, encourage PO intake and hydration as tolerated - f/up on culture results drawn here as well as those at urgent care prior to admission - pending resolution of cultures given clinical improvement will c/w IV CTX today - pt with slight AST & GGT elevation ? effect of Cipro use vs tylenol, though no liver pathology on CT scan noted, monitor liver enzymes closely and if uptrending would send viral hepatitis panel HBV, HCV - recommended bladder US and possible urologic evaluation given hx of UTI recurrence to r/o anatomic variant as cause for UTIs. DVT PPx: ambulation Nutrition: BRAT diet, advance as tolerated
[2018-12-15] MEDS ORDERED: SUMAtriptan SUCCINATE 25 MG TABLET PO ONE ×2 (16:15→23:24)
[2018-12-16] MEDS ORDERED: cefTRIAXone SODIUM 1 GM VIAL ONE (08:45)
[2018-12-16] MEDS ORDERED: DEXTROSE 5%-WATER - 50 ML IVPB ONE (08:46)
--- NOTE | 2018-12-16 09:02 | PN ---
Physical Exam: SUBJECTIVE: Patient seen and examined OBJECTIVE: Vital Signs Period Temp Pulse Resp BP Sys/Cuevas Pulse Ox Last 24 Hr 98.4 F-98.9 F 63-75 18-20 97-119/57-67 97-97 GENERAL: The patient is awake, alert, and fully oriented, in no acute distress. HEAD: Normal with no signs of trauma. EYES: PERRL, extraocular movements intact, sclera anicteric, conjunctiva clear. No ptosis. ENT: Ears normal, nares patent, oropharynx clear without exudates, moist mucous membranes. NECK: Trachea midline, full range of motion, supple. LUNGS: Breath sounds equal, clear to auscultation bilaterally, no wheezes, no crackles, no accessory muscle use. HEART: Regular rate and rhythm, S1, S2 without murmur, rub or gallop. ABDOMEN: Soft, nontender, nondistended, normoactive bowel sounds, no guarding, no rebound, no hepatosplenomegaly, no masses. EXTREMITIES: 2+ pulses, warm, well-perfused, no edema. NEUROLOGICAL: Cranial nerves II through XII grossly intact. Normal speech, gait not observed. PSYCH: Normal mood, normal affect. SKIN: Warm, dry, normal turgor, no rashes or lesions noted Laboratory Results - last 24 hr 12/15/18 12/16/18 08:50 07:12 C-Reactive Protein 5.7 H Urine Color Yellow Urine Appearance Clear Urine pH 6.0 Ur Specific [place] 1.013 Urine Protein Negative Urine Glucose (UA) Negative Urine Ketones Negative Urine Blood Trace Urine Nitrite Negative Urine Bilirubin Negative Urine Urobilinogen 1.0 Ur Leukocyte Esterase Negative Urine WBC (Auto) 3 Urine RBC (Auto) 1 Urine Casts (Auto) 1 U Epithel Cells (Auto) 8.3 Urine Bacteria (Auto) 112.8 Active Medications Generic Name Dose Route Start Last Admin Trade Name Freq PRN Reason Stop Dose Admin Acetaminophen 650 mg 12/14/18 23:29 12/15/18 07:50 Tylenol - PO 650 mg Q6H PRN Administration FEVER Ceftriaxone Sodium 1 gm/ 50 mls @ 100 mls/hr 12/15/18 10:00 12/15/18 09:36 Dextrose IVPB 100 mls/hr DAILY ANISHA Administration ASSESSMENT/PLAN: 33 Y/O F W Hx of recurrent UTI, recnetly been treated for UTI 4 days prior to ED visit here and been on Cipro. p/W left flank pain with negative CT and and Nl bladder US and negative UCX. No other /GI complaints or etiologies at this time. she has been afebrile and no leukocytosis at this time. Back pain recurrent UTI: can F./U with PMD as O/P. no need for further inpatient W/U Pending GC Abnormal ast/alt: pending hepatitis panel pain control:tylenol as needed
[2018-12-16] MEDS: CIPROFLOXACIN 250 MG TABLET (RESTRICTED TO ID) PO SCH ×2 (09:44→21:28)
--- NOTE | 2018-12-16 10:45 | DS ---
Physical Exam: SUBJECTIVE: Patient seen and examined, the pain has improved and she is tolerating Po at this time OBJECTIVE: Vital Signs Period Temp Pulse Resp BP Sys/Cuevas Pulse Ox Last 24 Hr 98.4 F-98.9 F 60-69 18-20 97-119/57-67 97-99 PHYSICAL EXAM GENERAL: The patient is awake, alert, and fully oriented, in no acute distress. HEAD: Normal with no signs of trauma. EYES: PERRL, extraocular movements intact, sclera anicteric, conjunctiva clear. ENT: Ears normal, nares patent, oropharynx clear without exudates, moist mucous membranes. NECK: Trachea midline, full range of motion, supple. LUNGS: Breath sounds equal, clear to auscultation bilaterally, no wheezes, no crackles, no accessory muscle use. HEART: Regular rate and rhythm, S1, S2 without murmur, rub or gallop. ABDOMEN: Soft,has mild tenderness in the RLQ with no peritoneal signs, no hernia detected in my exam. EXTREMITIES: 2+ pulses, warm, well-perfused, no edema. NEUROLOGICAL: Cranial nerves II through XII grossly intact. Normal speech, gait not observed. PSYCH: Normal mood, normal affect. SKIN: Warm, dry, normal turgor, no rashes or lesions noted. LABS Laboratory Results - last 24 hr 12/16/18 12/16/18 07:12 07:12 ESR 46 H C-Reactive Protein 5.7 H HOSPITAL COURSE: 33 Y/O F W Hx of recurrent UTI, initially was seen with abdominal pain , fever, diarrhea, N/V/ for 2 days , was evaluated in urgent care with concern for UTI and started on cipro and afetr 3 dasy as she did not improve she came [facility] ED and was hospitalized for further evaluation.In the hospital left flank pain was found to be MKS( with tenderness in palpation), UCX were negative, negative CT and and Nl bladder US. No other /GI complaints or etiologies at this time. She has been afebrile and no leukocytosis at this time. She was also found to have very minor elevation of the AST which resolved, had ALK elevation which was persistent with no abnormal finding on the abdominal CT. The RLQ pain and mild tenderness with no vaginal discharge, she has had no intercourse in the past couple of days so can no t give HX of pain. She is day 10 of her mentural cycle and denies any previous similar complaints in the past. She has been afebrile and No leukocytosis but ESR and CRP are elevated which could have been in the setting of viral infection. there was no finding of cysts in the US done yesterday but the right ovary was not detectable, At this time will get TVUS for evaluation of the Right ovary and R/O torsion. Back pain: MSK Abnormal ast/alt: pending hepatitis panel pain control:tylenol as needed Date of Admission:12/14/18 Date of Discharge: 12/16/18 Discharge Summary Reason For Visit: PYELONEPHRITIS Current Active Problems Pyelonephritis (Acute) Right flank pain (Acute) - Instructions - Home Medications Comprehensive Discharge Medication List: Ambulatory Orders Ciprofloxacin [Cipro (Restricted To Id)] 500 mg PO BID 12/15/18 - Discharge Referral Referred to [facility] No
[2018-12-16] MEDS ORDERED: oxyCODONE HCL 5 MG TABLET PO ONE (11:00)
[2018-12-16] MEDS ORDERED: ACETAMINOPHEN 325 MG TABLET (FP) PO ONE (11:00)
--- NOTE | 2018-12-16 11:19 | PN ---
Progress Note (short form) - Note Progress Note: Patient seen and examined, the pain has improved and she is tolerating Po at this time OBJECTIVE: Vital Signs Period Temp Pulse Resp BP Sys/Cuevas Pulse Ox Last 24 Hr 98.4 F-98.9 F 60-69 18-20 97-119/57-67 97-99 PHYSICAL EXAM GENERAL: The patient is awake, alert, and fully oriented, in no acute distress. HEAD: Normal with no signs of trauma. EYES: PERRL, extraocular movements intact, sclera anicteric, conjunctiva clear. ENT: Ears normal, nares patent, oropharynx clear without exudates, moist mucous membranes. NECK: Trachea midline, full range of motion, supple. LUNGS: Breath sounds equal, clear to auscultation bilaterally, no wheezes, no crackles, no accessory muscle use. HEART: Regular rate and rhythm, S1, S2 without murmur, rub or gallop. ABDOMEN: Soft,has mild tenderness in the RLQ with no peritoneal signs, no hernia detected in my exam. EXTREMITIES: 2+ pulses, warm, well-perfused, no edema. NEUROLOGICAL: Cranial nerves II through XII grossly intact. Normal speech, gait not observed. PSYCH: Normal mood, normal affect. SKIN: Warm, dry, normal turgor, no rashes or lesions noted. LABS Laboratory Results - last 24 hr 12/16/18 12/16/18 07:12 07:12 ESR 46 H C-Reactive Protein 5.7 H HOSPITAL COURSE: 33 Y/O F W Hx of recurrent UTI, initially was seen with abdominal pain , fever, diarrhea, N/V/ for 2 days , was evaluated in urgent care with concern for UTI and started on cipro and afetr 3 dasy as she did not improve she came to [facility] ED and was hospitalized for further evaluation.In the hospital left flank pain was found to be MKS( with tenderness in palpation), UCX were negative, negative CT and and Nl bladder US. No other /GI complaints or etiologies at this time. She has been afebrile and no leukocytosis at this time. She was also found to have very minor elevation of the AST which resolved, had ALK elevation which was persistent with no abnormal finding on the abdominal CT. The RLQ pain and mild tenderness with no vaginal discharge, she has had no intercourse in the past couple of days so can no t give HX of pain. She is day 10 of her mentural cycle and denies any previous similar complaints in the past. She has been afebrile and No leukocytosis but ESR and CRP are elevated which could have been in the setting of viral infection. there was no finding of cysts in the US done yesterday but the right ovary was not detectable, At this time will get TVUS for evaluation of the Right ovary and R/O torsion. Also pending GC results at this time. Abdominal pain : as mentioned above: pending TVUS in no torsion will send home later today or early tomorrow,Will DC antibiotics pain control:tylenol as needed Abnormal liver test: ALK elevation: NL imaging: no symptoms compatible with the complaints, will monitor, can send GGT for clear source of ALKphos elevation. Diet: regular as tolerate FC DVt ppx: She is active and walking around SCD Visit type - Emergency Visit Emergency Visit: No - New Patient This patient is new to me today: Yes Date on this admission: 12/16/18 - Critical Care Critical Care patient: No - Discharge Referral Referred to [facility] Med P.C.: No
[2018-12-16] MEDS: ACETAMINOPHEN 325 MG TABLET (FP) PO PRN (16:33)
--- NOTE | 2018-12-17 08:07 | PN ---
Teaching Attending Note Name of Resident: Jeff Luque ATTENDING PHYSICIAN STATEMENT I saw and evaluated the patient. I reviewed the resident's note and discussed the case with the resident. I agree with the resident's findings and plan as documented. 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
[2018-12-17] MEDS: CIPROFLOXACIN 250 MG TABLET (RESTRICTED TO ID) PO SCH ×2 (09:41→15:08)
[2018-12-17 11:36] VITALS: PULSE 72
[2018-12-17 13:36] VITALS: BP 123/83; TEMP 98.3
--- NOTE | 2018-12-17 17:01 | DS ---
Physical Exam: SUBJECTIVE: Patient seen and examined at bedside this AM. No acute events. OBJECTIVE: Vital Signs Period Temp Pulse Resp BP Sys/Cuevas Pulse Ox Last 24 Hr 98.2 F-99.0 F 58-72 18-18 98-123/56-83 99-100 PHYSICAL EXAM GENERAL: The patient is awake, alert, and fully oriented, in no acute distress. HEAD: Normal with no signs of trauma. EYES: PERRL, extraocular movements intact, sclera anicteric, conjunctiva clear. ENT: Ears normal, nares patent, oropharynx clear without exudates, moist mucous membranes. NECK: Trachea midline, full range of motion, supple. LUNGS: Breath sounds equal, clear to auscultation bilaterally, no wheezes, no crackles, no accessory muscle use. HEART: Regular rate and rhythm, S1, S2 without murmur, rub or gallop. ABDOMEN: Soft, nontender, nondistended, normoactive bowel sounds, no guarding, no rebound. Back- no CVA tenderness anymore EXTREMITIES: warm, well-perfused, no edema. NEUROLOGICAL: Cranial nerves II through XII grossly intact. Normal speech, gait not observed. PSYCH: Normal mood, normal affect. SKIN: Warm, dry, no rashes or lesions noted. LABS HOSPITAL COURSE: Date of Admission:12/14/18 Labs/Images: - UA negative for leuk est, nitrites, low wbc count, normal specific gravity. UA Cx negative. -CT abd/pel negative for calculi, pyelonephritis, no evidence of calcification in ureters, bladder. no hydronephrosis. This is a 33 y.o. F PMH recurrent UTI's and migraines who was admitted for suspected pyelonephritis. Pt presented to us s/p urgent care eval of ?pyelo sent to ED after placed on cipro. She had elevated transaminases mildly and it downtrending since being here. She was sent home on cipro. Pt was stable and no more CVA. She has a hx of UTI's and uro follow up was recommended with Dr. Luque to assess for possible Vesicoureteral reflux. Pt told to stay hydrated as much as possible and void frequently. Date of Discharge: 12/17/18 Minutes to complete discharge: 35 Discharge Summary Reason For Visit: PYELONEPHRITIS Condition: Improved - Instructions Diet, Activity, Other Instructions: You were seen in the hospital for complaints of back and flank pain. You were treated for a urinary tract infection with antibiotics. Imaging studies were done (CT scan and kidney ultrasound) that did not show any acute signs of a kidney infection. Throughout your hospital stay, your symptoms improved. You are being discharged home. Medications Please take Ciprofloxacin 500 mg twice a day for 3 more days. Please continue taking your medications as prescribed. Follow Up Please follow up with your primary care physician, Dr. Yañez, within 1 week. Please follow up with your OBGYN, Dr. Randolph, within 1 week. Please follow up with your urologist for outpatient urine studies. If you do not have a urologist, you may make an appointment with Dr. Suki Luque. Recommendations Please drink lots of water to help prevent future UTIs. It is important that you stay hydrated. Please make sure to urinate every 4-5 hours daily. If you experience worsening fever/chills, nausea/vomiting, persistent pain during urination or blood in urine, please proceed to your nearest emergency room immediately. Referrals: Juno Randolph MD [Staff Physician] - 1 Week Suki Luque MD [Staff Physician] - 1 Week Disposition: HOME - Home Medications Comprehensive Discharge Medication List: Ambulatory Orders Ciprofloxacin HCl [Cipro] 500 mg PO BID #6 tablet 12/17/18 Sumatriptan Succinate [Imitrex] 25 mg PO DAILY #7 tablet 12/17/18 This patient is new to me today: No Emergency Visit: Yes ED Registration Date: 12/14/18 Care time: The patient presented to the Emergency Department on the above date and was hospitalized for further evaluation of their emergent condition. Critical Care patient: No - Discharge Referral Referred to [facility] No ATTENDING PHYSICIAN STATEMENT I saw and evaluated the patient. I reviewed the resident's note and discussed the case with the resident. I agree with the resident's findings and plan as documented. SUBJECTIVE: OBJECTIVE: ASSESSMENT AND PLAN:
== END 2018-12-17 16:15 | disposition home or self-care (01) | DRG 690 ==
LOC: JER 18:47 → JERBED 22:59 → J7W 12-15 01:09
PROVIDERS: ADMIT Internal Medicine; ATTEND Internal Medicine
DX: N12 Tubulo-interstitial nephritis, not specified as acute or chronic (principal); G43.909 Migraine, unspecified, not intractable, without status migrainosus; R94.5 Abnormal results of liver function studies
CPT/HCPCS: 36415; 74176-TC; 76830-TC; 76856-TC; 80053; 81003; 81374; 82977; 83735; 84100; 84703; 85025; 85651; 86140; 87040; 87086; 87491; 87591; 99284-25; J7030

== ENCOUNTER 2020-02-12 04:31 | Day surgery (SDC) | payer OTHER ==
--- OUTSIDE RECORDS SUMMARY | 2020-02-07 08:19 | XMS ---
:1985 Author Organization [facility] Care Team Providers Name Role Phone SOL DYE TEENA Unavailable Unavailable EMERGENCY SERVICE, X Unavailable Unavailable KANCHAN TELLO Unavailable Unavailable Re-disclosure Warning The records that you are about to access may contain information from federally- assisted alcohol or drug abuse programs. If such information is present, then the following federally mandated warning applies: This information has been disclosed to you from records protected by federal confidentiality rules (42 CFR part 2). The federal rules prohibit you from making any further disclosure of this information unless further disclosure is expressly permitted by the written consent of the person to whom it pertains or as otherwise permitted by 42 CFR part 2. A general authorization for the release of medical or other information is NOT sufficient for this purpose. The Federal rules restrict any use of the information to criminally investigate or prosecute any alcohol or drug abuse patient.The records that you are about to access may contain highly sensitive health information, the redisclosure of which is protected by Article 27-F of the [facility] Public Health law. If you continue you may haveaccess to information: Regarding HIV / AIDS; Provided by facilities licensed or operated by the [facility] Office of Mental Health; or Provided by the [facility] Office for People With Developmental Disabilities. If such information is present, then the following [facility] mandated warning applies: This information has been disclosed to you from confidential records which are protected by state law. State law prohibits you from making any further disclosure of this information without the specific written consent of the person to whom it pertains, or as otherwise permitted by law. Any unauthorized further disclosure in violation of state law may result in a fine or skilled nursing sentence or both. A general authorization for the release of medical or other information is NOT sufficient authorization for further disclosure. Allergies and Adverse Reactions Type Description Substance Reaction Status Data Source(s ) Food allergy Shellfish Shellfish [facility] Drug allergy Sacramentofish Sacramentofish [facility] Encounters Encounter Providers Location Date Indications Data Source(s ) Emergency Attender: SOL 12/31/2019 SHORTNESS OF BREATH [facility] Health Care TEENAAttender: EDT Corpor[employer] n EMERGENCY SERVICE, XAdmitter: SOL GAMBOA SHORTNESS OF BREATH Emergency Attender: EMERGENCY 06/23/2019 BONE STUCK IN We [facility] SERVICE, XAttender: 06:20:00 PM EST THROAT Health Care KANCHAN TELLOAdmitter: Co rporation KANCHAN TELLO BONE STUCK IN THROAT Medications Medication Brand Start Product Dose Route Administrative Pharmacy [facility] Indications Reaction Description Data Name Date Form Instructions Instructions Source(s) Nitrofurant UNK complet Nitrofur anto [place] oin Monohyd 2020 MG ed in Monohyd [facility] Macro 1 04:25: Macro 100 MG He alth 23 PM Oral Capsule Care EDT TAKE 1 Corporatio CAPSULE n TWICE DAILY UNTIL GONE. Dispense: 14 Supervising physician: Sol Dye MD Ondansetron UNK complet Ondanset romaine [place] 4 MG Oral 2020 MG ed 4 MG Oral r Cou nty Tablet D 04:25: Tablet Health 23 PM Disintegrati Care EDT ng TAKE 1 Corporatio TABLET EVERY n 8 HOURS NEEDED FOR NAUSEA AND VOMITING. Dispense: 15 Supervising physician: Sol Dye MD ProAir HFA UNK complet ProAir HF A [place] 108 (90 2020 MG ed 108 (90 [place] [employer]) MCG/A 04:25: Base) Healt h 23 PM MCG/ACT Care EDT Inhalation Corporati o Aerosol n Solution INHALE 2 PUFFS EVERY 4 HOURS NEEDED FOR COUGH AND WHEEZE. Dispense: 8.5 Supervising physician: Sol Dye MD Ondansetron Ondans 12/30/ 4 mg UNK active Ondans etron [place] ODT (Zof etron 2020 ODT (Zofran) r [facility] ODT 04:24: (Peds) Oral Health (Zof 56 PM 4 mg PO Care EDT Corporatio n Medication administered onsite Potassium Potassium 12/31/2019 40 UNK active P otassium [place] Chloride O Chloride O 11:20:02 AM meq C hloride [facility] EDT Oral 40 meq Care PO Corporation Medication administered onsite Macrobid Macrobid 12/31/2019 100 UNK active Mac robid [place] (Nitrofuran (Nitrofuran 11:12:51 AM mg (Nitrofurantoin) [facility] EDT 100 mg PO Health Car e Corporation Medication administered onsite DuoNeb DuoNeb 12/31/2019 0.5 UNK active DuoNeb 0.5/3mg/3mL [place] 0.5/3mg/3mL 0.5/3mg/3mL 09:44:15 AM /3mg (Ipratropium/Albuterol) [facility] Inh 0.5/3mg /3mL [facility] Care Inhalation Administe r Corporation Via Nebulizer Medication administered onsite Zofran Zofran 12/31/2019 4 mg UNK active Zofran 4mg/2mL [place] 4mg/2mL 4mg/2mL 09:43:53 AM (Ondans etron) [facility] (Onda (Onda EDT Injection Give Car e 4 mg IVP Corporation Medication administered onsite Tylenol Tylenol 12/31/2019 1000 UNK active Tylen ol [place] Infusion Infusion 09:43:17 AM mg Infus ion [facility] (AD (AD EDT (ADULT) or Care GT 50 kg Corporation 1000 mg IVPB Medication administered onsite 0.9% NaCl 0.9% NaCl 12/31/2019 1000 mL UNK active 0.9% [place] IV IV 09:43:17 AM EDT NaCl IV C ounty Health 1000 mL Care Corporation Medication administered onsite Not Taking Not Taking 999 MG UNK completed N ot Taking [facility] Corpor[facility] n Not Taking Not Taking 999 MG UNK completed N ot Taking [facility] Corporatio n Insurance Providers Payer name Policy type Policy ID Covered Covered green party's Policy P elisha / Coverage green party ID relationship to Schmid Inf ormation type schmid UNK UNK UNK UNK UNK UNK UNK UNK UNK UNK UNK UNK BC PPO [id number] SP [id number] INDEPENDENT [id number] SP [id number] HEALTH O 701 Problems, Conditions, and Diagnoses Code Display Name Description Problem Type Effective Data Sour ce(s) Dates Z91.013 Allergy to ALLERGY TO Diagnosis 12/31/2019 [place] seafood SEAFOOD 08:35:00 AM [facility] [place] [employer] [place] E87.6 Hypokalemia HYPOKALEMIA Diagnosis 12/31/2019 [place] 08:35:00 AM [facility] [place] G43.909 Migraine, MIGRAINE, UNSP, Diagnosis 12/31/2019 [facility] er unspecified, not NOT INTRACTABLE, 08:35:00 AM [employer] [facility] intractable, WITHOUT STATUS EDT Care without status MIGRAINOSUS Corporati on migrainosus Z20.828 Contact with and CONTACT W AND Diagnosis 12/31/2019 [facility] (suspected) EXPOSURE TO OTH 08:35:00 AM [facility] exposure to other VIRAL EDT Care viral COMMUNICABLE [place] communicable DISEASES diseases Z3A.08 8 weeks gestation 8 WEEKS GESTATION Diagnosis 12/31/2019 [place] of OF 08:35:00 AM [facility] Orange LeapT [facility] [place] O31.21X0 Continuing CONT PREG AFT Diagnosis 12/31/2019 [place] after UTERIN DTH OF ONE 08:35:00 AM [facility] intrauterine FTS OR MORE, EDT Care of one FIRST TRI, UNSP Corpora tion fetus or more, first trimester, not applicable or unspecified O23.41 Unspecified UNSP INFCT OF Diagnosis 12/31/2019 [facility] infection of URINARY TRACT IN 08:35:00 AM [facility] urinary tract in , FIRST EDT Ca re , first TRIMESTER Corporat ion trimester O20.0 Threatened THREATENED Diagnosis 12/31/2019 [place] 08:35:00 AM [facility] [place] R06.02 Shortness of SHORTNESS OF Diagnosis 12/31/2019 [facility] r breath BREATH 08:35:00 AM [facility] [place] Z86.69 Personal history PERSONAL HISTORY Diagnosis 06/23/2019 Uli arriaga of other diseases OF DIS OF THE 06:20:00 PM [facility] of the nervous NERVOUS SYS AND EST Care system and sense SENSE ORGANS Corpor ation organs Z32.02 Encounter for ENCOUNTER FOR Diagnosis [facility]23[facility] test, TEST, 06:20:00 PM [facility] result negative RESULT NEGATIVE EST Care Corporation Z71.1 Person with PERSON W FEARED Diagnosis 06/23/2019 [facility] feared health HLTH COMPLAINT IN 06:20:00 PM [facility] complaint in whom WHOM NO DIAGNOSIS EST Care no diagnosis is IS MADE Corporati on made R09.89 Other specified OTH SYMPTOMS AND Diagnosis 06/23/2019 [place] symptoms and SIGNS INVOLVING 06:20:00 PM [facility] signs involving THE CIRC AND RESP EST Ca re the circulatory SYSTEMS Corporati on and respiratory systems Results ID Date Data Source [id number] 12/31/2019 12:00:00 AM [email or web address] Name Value Range Interpretation Code Description Data Kandi rce(s) Supporting Document(s ) SARS-COV-2 [place] RNA RT-PCR [facility] This lab was ordered by [facility] and reported by [facility]. Procedure Patient Treatment Plan of Care Planned Activity Planned Date Details Description Data Source (s) Ondansetron ODT (Zof 12/31/2019 04:24:56 [facility] EDT Health Care Cor poration Potassium Chloride O 12/31/2019 [facility] Macrobid (Nitrofuran 12/31/2019 11:12:51 [facility] DuoNeb 0.5/3mg/3mL 12/31/2019 09:44:15 [facility] Zofran 4mg/2mL (Onda 12/31/2019 09:43:53 [facility] Tylenol Infusion (AD 12/31/2019 09:43:17 [facility] 0.9% NaCl IV 12/31/2019 09:43:17 [facility] EDT Health Care Cor poration
[2020-02-10 19:15] VITALS: BMI 29.0
--- OUTSIDE RECORDS SUMMARY | 2020-02-12 04:34 | XMS ---
:1985 Author Organization [facility] Care Team Providers Name Role Phone LESLYE DYE TEENA Unavailable Unavailable EMERGENCY SERVICE, X [...] is protected by Article 27-F of the [facility] Public Health law. If you continue you may haveaccess to information: Regarding HIV / AIDS; Provided by facilities licensed or operated by the [facility] Office of Mental Health; or Provided by the [facility] Office for People With Developmental Disabilities. If such information is present, then the following [facility] mandated warning applies: This information has been [...] law may result in a fine or longterm sentence or both. A general authorization for the release of medical or other information is NOT sufficient authorization for further disclosure. Allergies and Adverse Reactions Type Description Substance Reaction Status Data Source(s ) Food allergy Shellfish Shellfish [facility] Drug allergy Shellfish [place] [facility] Encounters Encounter Providers Location Date Indications Data Source(s ) Emergency Attender: LESLYE 12/31/2019 SHORTNESS OF BREATH [facility], 08:35:00 AM Health Care TEENAAttender: EDT Corporatio n EMERGENCY SERVICE, XAdmitter: LESLYE GAMBOA SHORTNESS OF BREATH Emergency Attender: EMERGENCY 06/23/2019 BONE STUCK IN [facility] SERVICE, XAttender: 06:20:00 PM EST THROAT Health Care KANCHAN TELLOAdmitter: Co rporation KANCHAN TELLO BONE STUCK IN THROAT Medications Medication Brand Start Product Dose Route Administrative Pharmacy [facility] Indications Reaction Description Data Name Date Form Instructions Instructions Source(s) Nitrofurant UNK complet Nitrofur anto [place] Monohyd 2020 MG ed in Monohyd r [facility] Macro 1 04:25: Macro 100 MG He alth 23 PM Oral Capsule Care EDT TAKE 1 Corporatio CAPSULE n TWICE DAILY UNTIL GONE. Dispense: 14 Supervising physician: Leslye Dye MD Ondansetron UNK complet Ondanset romaine [place] 4 MG Oral 2020 MG ed 4 MG Oral r Cou nty Tablet D 04:25: Tablet Health 23 PM Disintegrati Care EDT ng TAKE 1 Corporatio TABLET EVERY n 8 HOURS NEEDED FOR NAUSEA AND VOMITING. Dispense: 15 Supervising physician: Leslye Dye MD ProAir HFA UNK complet ProAir HF A [place] 108 (90 2020 MG ed 108 (90 [place] [employer] MCG/A 04:25: Base) Healt h 23 PM MCG/ACT Care EDT Inhalation Corporati o Aerosol n Solution INHALE 2 PUFFS EVERY 4 HOURS NEEDED FOR COUGH AND WHEEZE. Dispense: 8.5 Supervising physician: Leslye Dye MD Ondansetron Ondans 4 mg UNK active Ondans etron [facility] ODT (Zof etron 2019 ODT (Zofran) r [facility] ODT 04:24: (Peds) Oral Health (Zof 56 PM 4 mg PO Care EDT Corporatio n Medication administered onsite Potassium Potassium 12/31/2019 40 UNK active P otassium [place] Chloride O Chloride O 11:20:02 AM meq C hloride [facility] EDT Oral 40 meq Care PO Corporation Medication administered onsite Macrobid Macrobid 12/31/2019 100 UNK active Mac robid [place] (Nitrofuran (Nitrofuran 11:12:51 AM mg (Nitrofurantoin) [facility] EDT 100 mg PO Health Car e Corporation Medication administered onsite DuoNeb DuoNeb 12/31/2019 0.5 UNK active DuoNeb 0.5/3mg/3mL [place] 0.5/3mg/3mL 0.5/3mg/3mL 09:44:15 AM /3mg (Ipratropium/Albuterol) [facility] EDT /3mL Inh 0.5/3mg /3mL [facility] Care Inhalation Administe r Corporation Via Nebulizer Medication administered onsite Zofran Zofran 12/31/2019 4 mg UNK active Zofran 4mg/2mL [place] 4mg/2mL 4mg/2mL 09:43:53 AM (Ondans etron) [facility] (Onda (Onda EDT Injection Give Car e 4 mg IVP Corporation Medication administered onsite Tylenol Tylenol 12/31/2019 1000 UNK active Tylen ol [facility] Infusion Infusion 09:43:17 AM mg Infus ion [facility] (AD (AD EDT (ADULT) or Care GT 50 kg Corporation 1000 mg IVPB Medication administered onsite 0.9% NaCl 0.9% NaCl 12/31/2019 1000 mL UNK active 0.9% [facility] IV IV 09:43:17 AM EDT NaCl IV C ounty Health 1000 mL Care Corporation Medication administered onsite Not Taking Not Taking 999 MG UNK completed N ot Taking [facility] Meds Home Meds Home [facility] Corporatio n Not Taking Not Taking 999 MG UNK completed N ot Taking [facility] Meds [place] Meds [facility] Corporatio n Insurance Providers Payer name Policy type Policy ID Covered Covered constitution party's Policy P elisha / Coverage constitution party ID relationship to Schmid Inf ormation type schmid AETNA O [id number] SP [id number] 2 UNK UNK UNK UNK UNK UNK UNK UNK UNK UNK UNK UNK BC PPO [id number] SP [id number] INDEPENDENT [id number] SP [id number] [facility] 701 Problems, Conditions, and Diagnoses Code Display Name Description Problem Type Effective Data Sour ce(s) Dates Z91.013 Allergy to ALLERGY TO Diagnosis 12/31/2019 [facility] seafood SEAFOOD 08:35:00 AM [facility] Wordina[employer] Care [place] E87.6 Hypokalemia HYPOKALEMIA Diagnosis 12/31/2019 [facility] 08:35:00 AM [facility] [employer] [facility] [place] G43.909 Migraine, MIGRAINE, UNSP, Diagnosis 12/31/2019 [facility] er unspecified, not NOT INTRACTABLE, 08:35:00 AM Hotel Tablet Themes intractable, WITHOUT STATUS EDT Care without status MIGRAINOSUS Corporati on migrainosus Z20.828 Contact with and CONTACT W AND Diagnosis 12/31/2019 [facility] (suspected) EXPOSURE TO OTH 08:35:00 AM [facility] exposure to other VIRAL EDT Care viral COMMUNICABLE [place] communicable DISEASES diseases Z3A.08 8 weeks gestation 8 WEEKS GESTATION Diagnosis 12/31/2019 [facility] of OF 08:35:00 AM [facility] EDT Care [facility] O31.21X0 Continuing CONT PREG AFT Diagnosis 12/31/2019 [facility] after UTERIN DTH OF ONE 08:35:00 AM C Hotel Tablet Themes intrauterine FTS OR MORE, EDT Care of one FIRST TRI, UNSP Corpora tion fetus or more, first trimester, not applicable or unspecified O23.41 Unspecified UNSP INFCT OF Diagnosis 12/31/2019 [facility] infection of URINARY TRACT IN 08:35:00 AM Count y Health urinary tract in , FIRST EDT Ca re , first TRIMESTER Corporat ion trimester O20.0 Threatened THREATENED Diagnosis 12/31/2019 [place] 08:35:00 [facility] R06.02 Shortness of SHORTNESS OF Diagnosis 12/31/2019 [facility] r breath BREATH 08:35:00 AM [facility] Z86.69 Personal history PERSONAL HISTORY Diagnosis 06/23/2019 Uli arriaga of other diseases OF DIS OF THE 06:20:00 PM Cou [facility] of the nervous NERVOUS SYS AND EST Care system and sense SENSE ORGANS Corpor ation organs Z32.02 Encounter for ENCOUNTER FOR Diagnosis 06/23/2019 [facility] test, TEST, 06:20:00 PM [facility] result negative RESULT NEGATIVE EST Care Corporation Z71.1 Person with PERSON W FEARED Diagnosis 06/23/2019 [facility] HLTH COMPLAINT IN 06:20:00 PM Cou [facility] complaint in whom WHOM NO DIAGNOSIS EST Care no diagnosis is IS MADE Corporati on made R09.89 Other specified OTH SYMPTOMS AND Diagnosis 06/23/2019 [place] symptoms and SIGNS INVOLVING 06:20:00 PM [facility] signs involving THE CIRC AND RESP EST Ca re the circulatory SYSTEMS Corporati on and respiratory systems Results ID Date Data Source [id number] 02/08/2020 12:46:00 PM EDT [facility] Name Value Range Interpretation Description Data Sup porting Code Source(s) Document(s ) SARS [facility] coronavirus 2 RNA This lab was ordered by [facility] and reported by [facility]. ID Date Data Source [id number] 12/31/2019 12:00:00 AM EDT [facility] Name Value Range Interpretation Code Description Data Kandi rce(s) Supporting Document(s ) SARS-COV-2 [facility] RNA RT-PCR [facility] This lab was ordered by [facility] and reported by [facility]. Procedure Patient Treatment Plan of Care Planned Activity Planned Date Details Description Data Source (s) Ondansetron ODT (Zof 12/31/2019 04:24:56 [facility] PM EDT Health Care Cor poration Potassium Chloride O 12/31/2019 11:20:02 [facility] AM EDT Health Care Cor poration Macrobid (Nitrofuran 12/31/2019 11:12:51 [facility] Cor poration DuoNeb 0.5/3mg/3mL 12/31/2019 09:44:15 [facility] Cor poration Zofran 4mg/2mL (Onda 12/31/2019 09:43:53 [facility] Cor poration Tylenol Infusion (AD 12/31/2019 09:43:17 [facility] Cor poration 0.9% NaCl IV 12/31/2019 09:43:17 [facility] Cor poration
[2020-02-12] MEDS ORDERED: ACETAMINOPHEN 325 MG TABLET (FP) PO PRN (14:11)
[2020-02-12] MEDS ORDERED: LACTATED RINGERS SOLUTION 1,000 ML IV SCH (14:15)
--- NOTE | 2020-02-12 14:31 | HP ---
History & Physical Update - History History: No Change ( at EGA 14 wk with h/o cervical incompetence) - Physical Physical: No Change - Assessment Assessment: No Change - Plan Plan: No Change (Sylvester cervical cerclage)
--- NOTE | 2020-02-12 15:52 | OP ---
Operative Note - Note: Operative Date: 02/12/20 Pre-Operative Diagnosis: at 14 wks of EGA, cervical incompetence Operation: Sylvester cervical cerclage Findings: 1. Preop US documented live SIUP in varaible presentation 2. intraopraively, a soft, short, closed cervix noted. 3. Postop US documented live SIUP in varaible presentation Post-Operative Diagnosis: Same as Pre-op Surgeon: Juno Randolph Anesthesiologist/FUELS ENGINEER: Ramona Correa Anesthesia: Spinal Estimated Blood Loss (mls): 5 Blood Volume Replaced (mls): 0 Fluid Volume Replaced (mls): 600 Operative Report Dictated: Yes
[2020-02-12] MEDS ORDERED: ACETAMINOPHEN 325 MG TABLET (FP) ONE (16:44)
[2020-02-12 20:32] VITALS: BP 104/68; PULSE 67; TEMP 98.4
--- NOTE | 2020-02-19 18:43 | OP ---
DATE OF OPERATION: 02/12/2020 PREOPERATIVE DIAGNOSIS: at estimated gestational age of 14 weeks, cervical incompetence, high-risk in the first trimester. POSTOPERATIVE DIAGNOSIS: at estimated gestational age of 14 weeks, cervical incompetence, high-risk in the first trimester. SURGICAL PROCEDURE: Sylvester cervical cerclage. SURGEON: Juno Randolph MD. ANESTHESIOLOGIST: Ramona Correa MD. ANESTHESIA: Spinal. COMPLICATIONS: None. ESTIMATED BLOOD LOSS: 5 mL. INTRAVENOUS FLUIDS: 600 mL. ESTIMATED BLOOD LOSS: 30 mL. FINDINGS: Preoperative pelvic transabdominal ultrasound showed a live single intrauterine in variable presentation, normal uterus and adnexa were noted. Normal amount of amniotic fluid was noted. Intraoperatively, a soft short but closed cervix was noted with no vaginal bleeding. A postoperative ultrasound was performed and noted a live single intrauterine in variable presentation, normal amount of amniotic fluid was noted. DESCRIPTION OF PROCEDURE: The patient was met preoperatively. Risks, benefits, and alternatives of surgery were discussed in detail. All questions were answered. The consent form was reviewed and explained. The patient verbalized her understanding. She was then brought to the OR with the IV running. The patient was placed on a surgical table in the supine position. The patient was then sat up to remain in the sitting position. She was given spinal anesthesia without difficulty. Once this was completed, the patient was placed in a dorsal lithotomy position using adjustable Glynn stirrups. The level of spinal anesthesia was checked and found to be adequate. The patient was prepped and draped in the usual sterile fashion. A preoperative pelvic transabdominal ultrasound was performed with the findings as described above. A timeout was conducted as per standard protocol. The surgeon then proceeded with the operation. A weighted speculum was introduced inside the vagina with good visualization of the cervix. A vaginal wall retractor was used to completely expose and visualize the cervix. A 5-mm tape was then placed in the pursestring fashion around the cervix. The suture was then tied at 12 o'clock position. Good hemostasis was noted. Once this was completed, the cervix was noted to be closed. Once again hemostasis was confirmed. The patient was then returned to supine position. A pelvic transabdominal ultrasound was performed, and a viable single intrauterine was noted with normal amniotic fluid. At that point, the patient was transferred to recovery room in stable condition and awake. Leonidas [id number]
== END 2020-02-12 20:33 | disposition home or self-care (01) ==
LOC: JASU-SURG 04:31
PROVIDERS: ATTEND Obstetrics & Gynecology
PROC: 0UVC7ZZ Restriction of Cervix, Via Natural or Artificial Opening (ICD-10-PCS; principal; 2020-02-12 14:00)
DX: O34.32 Maternal care for cervical incompetence, second trimester (principal); Z3A.14 14 weeks gestation of pregnancy
CPT/HCPCS: 94760

== ENCOUNTER 2020-07-20 06:44 | Inpatient (IN) | payer OTHER ==
[2020-07-20 08:08] VITALS: BMI 34.2
[2020-07-20] MEDS ORDERED: LIGASURE IMPACT TP ONE (09:12)
[2020-07-20] MEDS ORDERED: ceFAZolin SODIUM 1 GM VIAL ONE (09:37)
[2020-07-20] MEDS ORDERED: ELECTROLYTE-148 SOLN 1,000 ML IV SCH (10:00)
[2020-07-20] MEDS ORDERED: ONDANSETRON 4 MG/2 ML VIAL ONE (10:01)
[2020-07-20] MEDS ORDERED: OXYTOCIN 10 UNITS/ML VIAL ONE (10:01)
[2020-07-20] MEDS ORDERED: ePHEDrine SULFATE 50 MG/1 ML AMPULE ONE (11:18)
[2020-07-20 11:35] LABS: CORD HCO3 24.5 mmHg (20-29); CORD pH 7.244 (7.14-7.44)
[2020-07-20 11:39] LABS: CORD BASE EXCESS -1.6 mmol/L (0-2); CORD HCO3 24.9 mmHg (20-29); CORD PCO2 48.5 mmHg (30-78); CORD pH 7.329 (7.14-7.44)
[2020-07-20] MEDS ORDERED: IBUPROFEN 800 MG/8 ML IJ IVPB ONE (12:24)
[2020-07-20] MEDS ORDERED: OXYTOCIN 20 UNITS in 0.9% NS 20 UNIT/1,000 ML INFUS.BAG IV ONE (12:24)
[2020-07-20] MEDS: IBUPROFEN 800 MG/8 ML IJ IVPB PRN ×2 (12:30→21:51)
[2020-07-20] MEDS ORDERED: METHYLERGONOVINE MALEATE 0.2 MG/1 ML AMP IM PRN (16:08)
[2020-07-20] MEDS ORDERED: OXYTOCIN 20 UNITS in 0.9% NS 20 UNIT/1,000 ML INFUS.BAG IV SCH (16:15)
[2020-07-21] MEDS: IBUPROFEN 800 MG/8 ML IJ IVPB PRN (03:40)
[2020-07-21] MEDS: SIMETHICONE 80 MG TAB.CHEW (FP) PO PRN ×3 (07:27→21:49)
[2020-07-21 08:03] LABS: BASO % 0.4 % (0-2.0); EOS % 0.6 % (0-4.5); HEMATOCRIT 28.1 % (32.4-45.2); HEMOGLOBIN 9.6 GM/dL (10.7-15.3); LYMPH % 9.5 % (8-40); MCH 32.5 pg (25.7-33.7); MCHC 34.2 g/dl (32.0-36.0); MEAN CELL VOLUME 94.8 fl (80-96); MEAN PLT VOLUME 8.3 fl (7.5-11.1); MONO % 7.7 % (3.8-10.2); NEUT % 81.8 % (42.8-82.8); PLATELET COUNT 294 K/MM3 (134-434); RBC 2.97 M/mm3 (3.60-5.2); RDW 13.3 % (11.6-15.6); WHITE BLOOD COUNT 15.1 K/mm3 (4.0-10.0)
[2020-07-21] MEDS: IBUPROFEN 600 MG TABLET (FP) PO PRN ×3 (09:12→21:50)
[2020-07-21] MEDS: ENOXAPARIN NA (PORCINE) 40 MG/0.4 ML DISP.SYRIN SQ SCH (09:13)
[2020-07-21] MEDS ORDERED: BISACODYL 10 MG SUPP.RECT RC PRN (16:08)
[2020-07-21] MEDS: oxyCODONE HCL 5 MG TABLET PO PRN ×2 (17:56→21:49)
[2020-07-22] MEDS: oxyCODONE HCL 5 MG TABLET PO PRN ×5 (02:18→22:18)
[2020-07-22] MEDS: IBUPROFEN 600 MG TABLET (FP) PO PRN ×4 (02:19→19:46)
[2020-07-22] MEDS: ACETAMINOPHEN 325 MG TABLET (FP) PO PRN ×4 (02:19→19:45)
[2020-07-22] MEDS: SIMETHICONE 80 MG TAB.CHEW (FP) PO PRN ×3 (08:56→19:47)
[2020-07-22] MEDS: ENOXAPARIN NA (PORCINE) 40 MG/0.4 ML DISP.SYRIN SQ SCH (09:48)
[2020-07-23] MEDS: ACETAMINOPHEN 325 MG TABLET (FP) PO PRN ×2 (04:14→08:23)
[2020-07-23] MEDS: SIMETHICONE 80 MG TAB.CHEW (FP) PO PRN ×2 (04:14→08:24)
[2020-07-23] MEDS: oxyCODONE HCL 5 MG TABLET PO PRN ×2 (04:16→10:11)
[2020-07-23] MEDS: IBUPROFEN 600 MG TABLET (FP) PO PRN ×2 (04:16→08:23)
[2020-07-23 07:51] LABS: BASO % 0.5 % (0-2.0); EOS % 2.1 % (0-4.5); HEMATOCRIT 28.3 % (32.4-45.2); HEMOGLOBIN 9.5 GM/dL (10.7-15.3); LYMPH % 16.5 % (8-40); MCH 32.2 pg (25.7-33.7); MCHC 33.6 g/dl (32.0-36.0); MEAN CELL VOLUME 95.9 fl (80-96); MEAN PLT VOLUME 8.1 fl (7.5-11.1); MONO % 6.3 % (3.8-10.2); NEUT % 74.6 % (42.8-82.8); PLATELET COUNT 297 K/MM3 (134-434); RBC 2.96 M/mm3 (3.60-5.2); RDW 13.2 % (11.6-15.6); WHITE BLOOD COUNT 8.7 K/mm3 (4.0-10.0)
[2020-07-23 08:48] VITALS: BP 108/68; PULSE 81; TEMP 98.1
[2020-07-23] MEDS: ENOXAPARIN NA (PORCINE) 40 MG/0.4 ML DISP.SYRIN SQ SCH (10:13)
== END 2020-07-23 12:45 | disposition home or self-care (01) | DRG 784 ==
LOC: JLDR 06:44 → J3W 12:51
PROVIDERS: ADMIT Obstetrics & Gynecology; ATTEND Obstetrics & Gynecology
PROC: 10D00Z1 Extraction of Products of Conception, Low, Open Approach (ICD-10-PCS; principal; 2020-07-20)
PROC: 0UT70ZZ Resection of Bilateral Fallopian Tubes, Open Approach (ICD-10-PCS; 2020-07-20)
PROC: 0UCC0ZZ Extirpation of Matter from Cervix, Open Approach (ICD-10-PCS; 2020-07-20)
DX: O34.219 Maternal care for unspecified type scar from previous cesarean delivery (principal); O26.873 Cervical shortening, third trimester; Z3A.36 36 weeks gestation of pregnancy; Z37.0 Single live birth; Z30.2 Encounter for sterilization
CPT/HCPCS: 36415; 36600; 82803; 85025; 88302-TC; 88307-TC

== ENCOUNTER 2022-12-27 15:05 | Emergency (ER) | payer OTHER ==
[2022-12-27] MEDS ORDERED: LIDOCAINE HCL 2% (20ML MULTI-DOSE VIAL) ONE (15:28)
[2022-12-27 15:33] VITALS: BP 132/86; PULSE 72; RESP 20; TEMP 98.5; BMI 29.2
[2022-12-27] MEDS ORDERED: IBUPROFEN 600 MG TABLET (FP) PO ONE ×2 (16:10→16:13)
[2022-12-27] MEDS ORDERED: ACETAMINOPHEN 325 MG TABLET (FP) PO ONE (16:10)
[2022-12-27] MEDS ORDERED: ACETAMINOPHEN 325 MG TABLET (FP) ONE (16:13)
== END 2022-12-27 16:52 | disposition home or self-care (01) ==
LOC: FER 15:05
PROC: 3E0T3BZ Introduction of Anesthetic Agent into Peripheral Nerves and Plexi, Percutaneous Approach (ICD-10-PCS; principal; 2022-12-27)
DX: S62.635A Displaced fracture of distal phalanx of left ring finger, initial encounter for closed fracture (principal); R22.32 Localized swelling, mass and lump, left upper limb; W31.1XXA Contact with metalworking machines, initial encounter; Y99.0 Civilian activity done for income or pay
CPT/HCPCS: 73140-TC-LT-FY; 99283-25